=== PATIENT | female | born 1990 ===

== ENCOUNTER 2017-10-05 11:14 | Emergency (ER) | payer MEDICAID, OTHER ==
[2017-10-05 11:14] VITALS: BMI 35.7
[2017-10-05 11:20] VITALS: BP 128/83; PULSE 113; TEMP 98; O2SAT 100
[2017-10-05 11:39] VITALS: RESP 16
[2017-10-05] MEDS ORDERED: Sodium Chloride 0.9% 1,000 ML IV STA (12:08)
--- NOTE | 2017-10-05 12:11 | ED PDOC ---
HPI: General Adult Time Seen by Provider: 10/05/17 12:10 Chief Complaint (Nursing): Flu-like Symptoms Chief Complaint (Provider): ABDOMINAL PAIN/COUGH History Per: Patient (26 Y/O FEMALE HERE WITH COUGH/BODYACHES SINCE YESTERDAY. NOTES RIGHT LOWER ABDOMINAL PAIN INTERMITTENTLY. HAS HAD ULTRASOUND 1 MONTH PRIOR WNL. HAS HAD SMALL AMOUNT OF BLOOD NOTED WITH WIPING. DENIES ANY DYSURIA. ) Past Medical History Reviewed: Historical Data, Nursing Documentation, Vital Signs Vital Signs: Last Vital Signs Temp 98 F 10/05/17 11:37 Pulse 113 H 10/05/17 11:37 Resp 16 10/05/17 11:37 BP 128/83 10/05/17 11:37 Pulse Ox 100 10/05/17 12:11 - Medical History PMH: Anxiety Denies: Chronic Kidney Disease - Family History Family History: States: Unknown Family Hx, Diabetes, Hypertension - Immunization History Hx Tetanus Toxoid Vaccination: No Hx Influenza Vaccination: No Hx Pneumococcal Vaccination: No - Home Medications Home Medications: Ambulatory Orders Medication Instructions Recorded Acetaminophen [Acetaminophen Extra 2 tab PO Q6 PRN #24 tablet 10/05/17 Strength] Oseltamivir [Tamiflu] 75 mg PO BID #9 cap 10/05/17 - Allergies Allergies/Adverse Reactions: Allergies Allergy/AdvReac Type Severity Reaction Status Date / Time fluconazole [From Diflucan] Allergy ITCHING Verified 10/05/17 11:36 Review of Systems ROS Statement: Except As Marked, All Systems Reviewed And Found Negative Physical Exam - Reviewed Nursing Documentation Reviewed: Yes Vital Signs Reviewed: Yes - Physical Exam Appears: Positive for: Well, Non-toxic, No Acute Distress Head Exam: Positive for: ATRAUMATIC, NORMAL INSPECTION, NORMOCEPHALIC Skin: Positive for: Normal Color, Warm, DRY Eye Exam: Positive for: EOMI, Normal appearance, PERRL ENT: Positive for: Normal ENT Inspection Neck: Positive for: Normal, Painless ROM Cardiovascular/Chest: Positive for: Regular Rate, Rhythm Respiratory: Positive for: CNT, Normal Breath Sounds Gastrointestinal/Abdominal: Positive for: Normal Exam, Bowel Sounds, Soft Back: Positive for: Normal Inspection Extremity: Positive for: Normal ROM Neurologic/Psych: Positive for: Alert, Oriented - Laboratory Results Result Diagrams: 10/05/17 12:30 10/05/17 12:30 - ECG O2 Sat by Pulse Oximetry: 100 - Progress ED Course And Treament: US of pelvis IMPRESSION: A single viable intrauterine gestation is identified with average ultrasonic age 15 weeks 0 days which is concordant with menstrual dates as described above. cardiac activity 152 beats per minute. No acute suspicious findings as discussed above. A left lateral/ anterior fundal fibroid is identified 3.3 cm greatest dimension however. Clinical correlation and sonographic follow-up are advised. anatomical survey not provided they can be performed on elective basis as clinically warranted. Disposition - Clinical Impression Clinical Impression: Influenza-like symptoms, Fibroid, Abdominal pain during - Disposition Disposition: Routine/Home Disposition Time: 18:04 Condition: FAIR Prescriptions: Acetaminophen [Acetaminophen Extra Strength] 2 tab PO Q6 PRN #24 tablet PRN Reason: Pain, Moderate (4-7) Oseltamivir [Tamiflu] 75 mg PO BID #9 cap Instructions: Uterine Fibroids, and the Flu, Threatened Miscarriage Forms: [facility] ([place]), [facility] ED School/Work Excuse
[2017-10-05 12:46] LABS: SQUAMOUS EPITHIAL 38 /hpf (0-5); URINE BACTERIA MANY (<OCC); URINE BILIRUBIN NEGATIVE (NEGATIVE); URINE BLOOD NEGATIVE (NEGATIVE); URINE CLARITY CLOUDY (Clear); URINE COLOR AMBER (YELLOW); URINE GLUCOSE (UA) NEG (Normal); URINE LEUKOCYTE ESTERASE TRACE Leu/uL (Negative); URINE NITRATE NEGATIVE (NEGATIVE); URINE PROTEIN 30 mg/dL (NEGATIVE); URINE UROBILINOGEN 0.2-1.0 mg/dL (0.2-1.0)
[2017-10-05 13:03] LABS: BASO % 0.2 % (0.0-2.0); EOS # 0.1 K/uL (0.0-0.7); EOS % 1.2 % (0.0-4.0); HEMOGLOBIN 11.8 g/dL (12.0-16.0); LYMPH % 18.2 % (20.0-40.0); MEAN CELL VOLUME 81.9 fl (81.0-99.0); MEAN CORPUSCULAR HEMOGLOBIN 27.1 pg (27.0-31.0); MEAN CORPUSCULAR HGB CONC 33.1 g/dL (33.0-37.0); MEAN PLATELET VOLUME 8.7 fl (7.2-11.7); MONO # 0.5 K/uL (0.0-0.8); MONO % 4.1 % (0.0-10.0); NEUT # 8.4 K/uL (1.8-7.0); NEUT % 76.3 % (50.0-75.0); RBC 4.36 Mil/uL (3.80-5.20); RED CELL DISTRIBUTION WIDTH 15.5 % (11.5-14.5); WHITE BLOOD COUNT 11.1 K/uL (4.8-10.8)
[2017-10-05 13:07] LABS: BLOOD UREA NITROGEN 8 mg/dl (7-17); GFR AFRICAN-AMERICAN > 60; GFR NON-AFRICAN AMERICAN > 60
--- NOTE | 2017-10-05 16:21 | US ---
PROCEDURE: OB Pelvic Ultrasound HISTORY: right lower adnexal tendenress COMPARISON: None available. FINDINGS: UTERUS: A single viable intrauterine gestation is identified in variable lie with a posterior fundal placenta and an average ultrasonic age of 15 weeks 0 days. This is concordant with menstrual dates of 14 weeks 3 days based on prior LMP 06/26/2017. cardiac activity recorded 152 bpm. There is no placental abruption or previa with the internal cervical os appearing closed. The myometrium is remarkable for a small anterior fundal fibroid toward the left measuring 3.3 x 2.7 x 3.0 cm the remainder of the visualized myometrium appears unremarkable. biometry as follows: BPD 2.9 cm corresponds to 15 weeks 2 days. HC 10.7 cm corresponds to 15 weeks 1 day. AC 8.5 cm correspond to 14 weeks 6 days. FL 1.6 cm correspond to 14 weeks 6 days. HC/AC ratio 1.26 which falls within the normal range. Estimated date of delivery 03/29/2018. Amniotic fluid appearance is unremarkable grossly. Overall size of the uterus 13.5 x 11.7 x 7.5 cm. CERVIX: Long and closed. No cervical abnormality seen. RIGHT OVARY: Measures 3.9 x 3.3 x 2.0 cm. No mass. Normal flow. LEFT OVARY: Measures 3.4 x 3.2 x 1.9 cm. No mass. Normal flow. FREE FLUID: None. OTHER FINDINGS: None. IMPRESSION: A single viable intrauterine gestation is identified with average ultrasonic age 15 weeks 0 days which is concordant with menstrual dates as described above. cardiac activity 152 beats per minute. No acute suspicious findings as discussed above. A left lateral/ anterior fundal fibroid is identified 3.3 cm greatest dimension however. Clinical correlation and sonographic follow-up are advised. anatomical survey not provided they can be performed on elective basis as clinically warranted.
== END 2017-10-05 18:24 | disposition home or self-care (01) ==
LOC: H.ER 11:14
DX: R10.31 Right lower quadrant pain (principal); J11.1 Influenza due to unidentified influenza virus with other respiratory manifestations; O34.10 Maternal care for benign tumor of corpus uteri, unspecified trimester; F41.9 Anxiety disorder, unspecified
CPT/HCPCS: 76815; 76817; 80048; 81003; 84702; 85025; 86850; 86900; 87086; 87804; 96360; 96361; 99282; J7040

== ENCOUNTER 2017-11-28 14:28 | Emergency (ER) | payer OTHER ==
[2017-11-28 15:19] VITALS: BMI 36.2
[2017-11-28 17:20] LABS: SQUAMOUS EPITHIAL 2 /hpf (0-5); URINE AMORPHOUS SEDIMENT RARE /ul (<OCC); URINE BACTERIA RARE (<OCC); URINE BILIRUBIN NEGATIVE (NEGATIVE); URINE BLOOD NEGATIVE (NEGATIVE); URINE CLARITY SLIGHTY-CLOUDY (Clear); URINE COLOR YELLOW (YELLOW); URINE GLUCOSE (UA) NEG (Normal); URINE LEUKOCYTE ESTERASE NEG Leu/uL (Negative); URINE PROTEIN NEGATIVE (NEGATIVE); URINE UROBILINOGEN 0.2-1.0 mg/dL (0.2-1.0)
--- NOTE | 2017-11-28 17:20 | US ---
HISTORY: 22 weeks gestation. Assess cervical length COMPARISON: 10/05/2017 ultrasound. Cervical length on the prior study 4.37 cm TECHNIQUE: Standard protocol for this study/examination. FINDINGS: CERVIX: Cervical length 2.94 cm. Trace fluid in the lower cervical canal and vagina. FREE FLUID: No significant free fluid noted. OTHER FINDINGS: None. IMPRESSION: Cervical length 2.94 cm
--- NOTE | 2017-11-28 17:47 | OBHP ---
Datetime: 11/28/2017 15:15 IP Adm Impression: , intrauterine ; No Active Labor; Intact Membranes IP Chief Complaint Other: abd discomfort IP Admit Plan: Observation/Evaluation Admit Comment, IP Provider: IUP at 22w lower abd discomfort for weeks. She feel on and off. N o meds taken. +FM No VB PNC: [facility]; sono at [facility] [place] shortened cervix - chekcing q weekly PMH: PCOS PSH: laparoscopy Dr Yuliana Padron Allergy: Diflucan POBH: G1 PGYNH: No STD PSoH: denies smoking ETOH drugs A: IUP at 22w Hx shotert cervix PLAN: check US ; CLM Abdomen - PN: Normal Back - PN: Normal Lungs - PN: Normal Heart - PN: Normal General - PN: Normal FHR - Baseline A Provider: + Membranes, Provider: Intact Comments, ACOG Physical Exam: ROS: Geneeral: no fatigue; no weakness HEENT: no AGUILAR; no visual disturbance Resp: No SOB; no cough CV: no CP; no palpitations GI: no N/V/D : No F/U/D MS: No joint pain Pool Provider: Negative EGA AdmitDate IP: 22.1 Vital Signs Provider: Reviewed IP Chief Complaint: Other Dilatation, Provider: 0
--- NOTE | 2017-11-28 17:47 | OBDCSUM ---
Datetime: 11/28/2017 17:25 Discharged to, Provider: Home Follow up at, Provider: private [employer] Disch Instr Activity: Normal activity Disch Instr Diet: Regular Discharge Diet restrict Prov: please follow all instructions from your private [employer] Discharge Time: 11/28/2017 17:40 Follow up in weeks, Provider: This week Discharge Comment, Provider: CLM 2.8cm UA neg - Follow up with [facility] in 1-2w as scheduled Discharge Diagnosis Prov Other: abd pain
[2017-11-28 21:50] VITALS: BP 111/66; PULSE 107; RESP 18; TEMP 98.5; O2SAT 98
== END 2017-11-28 17:49 | disposition home or self-care (01) ==
LOC: H.EROB2 14:28
DX: O26.92 Pregnancy related conditions, unspecified, second trimester (principal); R10.2 Pelvic and perineal pain; Z3A.22 22 weeks gestation of pregnancy

== ENCOUNTER 2017-12-18 14:51 | Emergency (ER) | payer OTHER ==
[2017-12-18 17:34] VITALS: BMI 38.2
[2017-12-18] MEDS ORDERED: Betamethasone Soluspan 30 mg/5mL Inj Susp IM ONE (17:35)
[2017-12-18] MEDS ORDERED: Lactated Ringer's 1,000 ML IV ONE (17:35)
--- NOTE | 2017-12-18 17:47 | OBHP ---
Datetime: 12/18/2017 17:41 IP Adm Impression: , intrauterine IP Chief Complaint Other: rule out labor IP Admit Plan: Observation/Evaluation Admit Comment, IP Provider: Patient is a @ 25 wks with a history of short cervix sent over for evaluation. Patient has had short cervix since Level II u/s, has been on vaginal progesterone 200mcg PV QHS. Patient denies VB, leaking, no ctxns, no pressure, +FM. Patient had follow up U/S today which showed CL = 15mm -> 8mm with funneling. Pt has no complaints Spoke with attending lisset Escobar st was made to speak with MFM. Dr. Anderson requesting for patient to be started on MgSO4 for neuropr otection and prophylaxis, CBC draw, Betamethasone, IVF and to be transferred to a Level 3 NICU. FHR=1 50s mod cuauhtemoc, +accels, no contractions on monitor, vitals otherwise stable. Patient informed of plan o f care, all questions answered. Patient waiting for ambulance transfer Pelvic Type - PN: Adequate Extremities - PN: Normal Abdomen - PN: Normal Back - PN: Normal Breast - PN: Normal Lungs - PN: Normal Heart - PN: Normal Thyroid - PN: Normal Neurologic - PN: Normal HEENT - PN: Normal General - PN: Normal FHR - Baseline A Provider: 150 Vital Signs Provider: Reviewed; Within Normal Limits NICHD Variability Prov Fetus A: Moderate 6-25bpm NICHD Decel Fetus A IP Provider: None Genitourinary Exam: Normal DTRs - PN: Normal Datetime: 11/28/2017 15:15 EGA AdmitDate IP: 22.1
[2017-12-18] MEDS ORDERED: Magnesium Sulfate 2 gm/50 ml 2 GM/50 ML BAG IV ONE (18:00)
[2017-12-18] MEDS ORDERED: Lactated Ringer's 1,000 ML IV SCH (18:00)
[2017-12-18 18:02] LABS: BASO # 0.1 K/uL (0.0-0.2); BASO % 0.6 % (0.0-2.0); EOS # 0.2 K/uL (0.0-0.7); EOS % 1.4 % (0.0-4.0); HEMOGLOBIN 11.5 g/dL (12.0-16.0); LYMPH # 2.2 K/uL (1.0-4.3); LYMPH % 20.2 % (20.0-40.0); MEAN CELL VOLUME 85.7 fl (81.0-99.0); MEAN CORPUSCULAR HEMOGLOBIN 28.7 pg (27.0-31.0); MEAN CORPUSCULAR HGB CONC 33.5 g/dL (33.0-37.0); MEAN PLATELET VOLUME 9.2 fl (7.2-11.7); MONO # 0.5 K/uL (0.0-0.8); MONO % 4.7 % (0.0-10.0); NEUT % 73.1 % (50.0-75.0); RBC 3.99 Mil/uL (3.80-5.20); RED CELL DISTRIBUTION WIDTH 14.8 % (11.5-14.5); WHITE BLOOD COUNT 10.9 K/uL (4.8-10.8)
[2017-12-18 18:10] LABS: ALBUMIN 3.9 g/dL (3.5-5.0); ALT/SGPT 36 U/L (9-52); AST/SGOT 31 U/L (14-36); BLOOD UREA NITROGEN 4 mg/dl (7-17); CALCIUM 9.6 mg/dL (8.4-10.2); GFR AFRICAN-AMERICAN > 60; GFR NON-AFRICAN AMERICAN > 60
[2017-12-18] MEDS ORDERED: Magnesium Sulfate 4 gm/100 ml 4 GM/100 ML BAG IVPB ONE (18:19)
--- NOTE | 2017-12-18 20:13 | OBDCSUM ---
Datetime: 12/18/2017 20:12 Discharged to, Provider: Other Follow up at, Provider: [facility] Discharge Time: 12/18/2017 20:12 Discharge Diagnosis Prov Other: short cervix
[2017-12-19 01:40] VITALS: BP 107/60; PULSE 88; RESP 20; TEMP 98.6; O2SAT 99
== END 2017-12-18 19:30 | disposition short-term general hospital (02) ==
LOC: H.EROB2 14:51
DX: O26.872 Cervical shortening, second trimester (principal); O09.92 Supervision of high risk pregnancy, unspecified, second trimester; Z3A.25 25 weeks gestation of pregnancy; O09.292 Supervision of pregnancy with other poor reproductive or obstetric history, second trimester
CPT/HCPCS: 80053; 85025; 96365; 96372; 99284; J0702; J3475; J7120

== ENCOUNTER 2018-10-11 11:09 | Observation (INO) | payer MEDICAID, OTHER ==
[2018-10-11 11:28] VITALS: BMI 33.6
[2018-10-11] MEDS ORDERED: Sodium Chloride 0.9% 1,000 ML IV STA ×3 (12:14→17:12)
--- NOTE | 2018-10-11 12:16 | ED PDOC ---
HPI: General Adult Time Seen by Provider: 10/11/18 12:15 Chief Complaint (Nursing): Flu-like Symptoms Chief Complaint (Provider): cough/uri/fever History Per: Patient (27 y/o female 18 week here with cough/fever/bodyaches x 2-3 days associated with sore throat. Started on zpack by Dr. alaniz. Patient requesting tamiflu.) Past Medical History Reviewed: Historical Data, Nursing Documentation, Vital Signs Vital Signs: Last Vital Signs Temp 100 F H 10/11/18 11:29 Pulse 127 H 10/11/18 11:29 Resp 20 10/11/18 11:29 BP 112/76 10/11/18 11:29 Pulse Ox 99 10/11/18 11:29 - Medical History PMH: Anxiety Denies: Chronic Kidney Disease - Family History Family History: States: Unknown Family Hx, Diabetes, Hypertension - Immunization History Hx Tetanus Toxoid Vaccination: No Hx Influenza Vaccination: No Hx Pneumococcal Vaccination: No - Home Medications Home Medications: Ambulatory Orders Medication Instructions Recorded Oseltamivir Phosphate [Tamiflu] 75 mg PO BID #9 capsule 10/11/18 - Allergies Allergies/Adverse Reactions: Allergies Allergy/AdvReac Type Severity Reaction Status Date / Time fluconazole [From Diflucan] Allergy ITCHING Verified 10/05/17 11:36 Review of Systems ROS Statement: Except As Marked, All Systems Reviewed And Found Negative Constitutional: Positive for: Fever Respiratory: Positive for: Cough Physical Exam - Reviewed Nursing Documentation Reviewed: Yes Vital Signs Reviewed: Yes - Physical Exam Appears: Positive for: Well, Non-toxic, No Acute Distress Head Exam: Positive for: ATRAUMATIC, NORMAL INSPECTION, NORMOCEPHALIC Skin: Positive for: Normal Color, Warm, DRY Eye Exam: Positive for: EOMI, Normal appearance, PERRL ENT: Positive for: Normal ENT Inspection Neck: Positive for: Normal, Painless ROM Cardiovascular/Chest: Positive for: Regular Rate, Rhythm Respiratory: Positive for: CNT, Normal Breath Sounds Gastrointestinal/Abdominal: Positive for: Normal Exam, Soft Back: Positive for: Normal Inspection Extremity: Positive for: Normal ROM Neurological/Psych: Positive for: Awake, Alert, Normal Tone - Laboratory Results Result Diagrams: 10/11/18 12:00 10/11/18 12:00 - ECG O2 Sat by Pulse Oximetry: 99 - Progress ED Course And Treament: FLU A POSITIVE TAMIFLU 75 MG X 1 DOSE NS 1 LITER WIDE OPEN PATIENT NOTED PERSISTENTLY TACHYCARDIC DESPITE 1 LITER OF NASAL SALINE FLUIDS. TYLENOL 975MG X 1 DOSE NS 1 LITER ADDITIONAL GIVEN HEART RATE NOTED 120. EKG DONE 113 SINUS TACHYCARDIA NO ECTOPY NO ACUTE CHANGES. CALLED TO BEDSIDE DUE TO ACUTE SHORTNESS OF BREATH. PATIENT NOTED WHEEZING ON EXAM. DUONEB X 2. SOLUMEDROL 40 MG IV X 1 DOSE WITH IMPROVEMENT/MODERATE RESOLUTION OF SYMPTOMS. THIRD LITER FLUIDS GIVEN. PATIENT NOTED PERSISTENTLY AROUND 117-120 ON MONITOR. D/W DR. ALANIZ. WE WILL ADMIT FOR TELE OBS AND HAD CARDIOLOGY EVALUATE TOMORROW. PATIENT RE-EXAMINED AT 19:01PM. NOTES MILD WORSENING OF SYMPTOMS. SOLUMEDROL 80MG IV X 1 DOSE. PRO BNP/TROP ADDED. DUONEB X 1 DOSE NOW Disposition - Clinical Impression Clinical Impression: Influenza A - Patient ED Disposition Is Patient to be Admitted: No - Disposition Disposition: Routine/Home Disposition Time: 18:37 Condition: FAIR - Pt Status Changed To: Hospital Disposition Of: Observation
[2018-10-11 12:40] LABS: BASO % 0.2 % (0.0-2.0); EOS % 0.2 % (0.0-4.0); HEMOGLOBIN 11.4 g/dL (12.0-16.0); LYMPH # 0.8 K/uL (1.0-4.3); LYMPH % 13.5 % (20.0-40.0); MEAN CORPUSCULAR HEMOGLOBIN 29.5 pg (27.0-31.0); MEAN CORPUSCULAR HGB CONC 34.2 g/dL (33.0-37.0); MEAN PLATELET VOLUME 8.7 fl (7.2-11.7); MONO # 0.4 K/uL (0.0-0.8); MONO % 6.9 % (0.0-10.0); NEUT # 4.9 K/uL (1.8-7.0); NEUT % 79.2 % (50.0-75.0); RBC 3.86 Mil/uL (3.80-5.20); RED CELL DISTRIBUTION WIDTH 14.3 % (11.5-14.5); WHITE BLOOD COUNT 6.2 K/uL (4.8-10.8)
[2018-10-11 13:02] LABS: ALB/GLOB RATIO 1.1 (1.0-2.1); ALT/SGPT 54 U/L (9-52); AST/SGOT 46 U/L (14-36); BLOOD UREA NITROGEN 3 mg/dl (7-17); CALCIUM 9.6 mg/dL (8.4-10.2); GFR NON-AFRICAN AMERICAN > 60
[2018-10-11] MEDS ORDERED: Albuterol-Ipratrop 3 mg / 0.5 (3 ml) UD INH STA ×3 (15:35→19:28)
[2018-10-11] MEDS ORDERED: Albuterol-Ipratrop 3 mg / 0.5 (3 ml) UD ONE ×2 (15:39→19:53)
[2018-10-11] MEDS ORDERED: MethylPREDNISolone 40 mg Vial IVP ONE (17:15)
[2018-10-11] MEDS ORDERED: MethylPREDNISolone 40 mg Vial ONE ×2 (17:19→19:53)
--- NOTE | 2018-10-11 23:12 | CP.PCM.HP ---
History of Present Illness - History of Present Illness History of Present Illness: 27 y/o female ( delivery at 32 wks) with EDC of 03/17/19, and 17+ wks gestation, who underwent cervical cerclage placement at [facility], on 09/19/18 who was seen in office yesterday with sx of URI and sorethoat and tx'd with po cough meds and a Z pack and who called this am c/o worsening sx and not being able to breath Pt was sent to ER and found with + influenza a, and maternal tachycardia which persisted and now admitted for cardiac monitoring Denies chest pain or neck, jaw or arm pains Denies vaginal bleeding or spotting No abdominal pains. Present on Admission - Present on Admission Any Indicators Present on Admission: No Review of Systems - Constitutional Constitutional: Fever, Malaise - EENT Nose/Mouth/Throat: Nasal Congestion, Sore Throat - Cardiovascular Cardiovascular: Dyspnea, Rapid Heart Rate - Reproductive: Female Reproductive:Female: As Per HPI - Menstruation Menstruation: As Per HPI Additional comments: 17+ wks preg Past Patient History - Infectious Disease Hx of Infectious Diseases: None - Past Medical History & Family History Past Medical History?: Yes - Past Social History Smoking Status: Former Smoker Alcohol: None Drugs: Denies - CARDIAC Hx Cardiac Disorders: Yes (PALPITATIONS) - PULMONARY Hx Respiratory Disorders: No - NEUROLOGICAL Hx Neurological Disorder: No - HEENT Hx HEENT Problems: No - RENAL Hx Chronic Kidney Disease: No - ENDOCRINE/METABOLIC Hx Endocrine Disorders: No (SEE COMMENT) Other/Comment: PCOS - HEMATOLOGICAL/ONCOLOGICAL Hx Blood Disorders: No - INTEGUMENTARY Hx Dermatological Problems: No - GASTROINTESTINAL Hx Gastrointestinal Disorders: No - GENITOURINARY/GYNECOLOGICAL Hx Genitourinary Disorders: Yes Other/Comment: polycystic ovarian syndrome. endometriosis LMP:: 06/04/18 : 2 Para: 1 ( delivery at 32 wks) - PSYCHIATRIC Hx Anxiety: Yes - SURGICAL HISTORY Hx Surgeries: Yes Other/Comment: LAPAROSCOPY OVARIAN CYSTECTOMY/Cervical cerclage - ANESTHESIA Hx Anesthesia: Yes Hx Anesthesia Reactions: No Hx Malignant Hyperthermia: No Meds Allergies/Adverse Reactions: Allergies Allergy/AdvReac Type Severity Reaction Status Date / Time fluconazole [From Diflucan] Allergy ITCHING Verified 10/05/17 11:36 Physical Exam - Head Exam Head Exam: ATRAUMATIC - Eye Exam Eye Exam: Normal appearance - ENT Exam ENT Exam: Mucous Membranes Moist - Neck Exam Neck exam: Positive for: Full Rom - Respiratory Exam Respiratory Exam: Wheezes - Cardiovascular Exam Cardiovascular Exam: Tachycardia - GI/Abdominal Exam GI & Abdominal Exam: Normal Bowel Sounds, Soft Additional comments: gravid abdomen fundus at 2 FB below umb. and not tender FCA 150's by doppler - Exam External exam: NORMAL EXTERNAL EXAM - Extremities Exam Additional comments: no calf tenderness - Neurological Exam Neurological exam: Alert, Oriented x3 - Psychiatric Exam Psychiatric exam: Normal Affect Results - Vital Signs Recent Vital Signs: Last Vital Signs Temp 98.6 F 10/11/18 21:53 Pulse 115 H 10/11/18 21:53 Resp 18 10/11/18 21:53 BP 95/67 L 10/11/18 21:53 Pulse Ox 99 10/11/18 21:53 - Labs Result Diagrams: 10/11/18 12:00 10/11/18 12:00 Labs: Laboratory Results - last 24 hr 10/11/18 10/11/18 10/11/18 12:00 12:00 12:00 WBC 6.2 RBC 3.86 Hgb 11.4 L Hct 33.2 L MCV 86.0 MCH 29.5 MCHC 34.2 RDW 14.3 Plt Count 187 MPV 8.7 Neut % (Auto) 79.2 H Lymph % (Auto) 13.5 L [place] % (Auto) 6.9 Eos % (Auto) 0.2 Baso % (Auto) 0.2 Neut # (Auto) 4.9 Lymph # (Auto) 0.8 L [place] # (Auto) 0.4 Eos # (Auto) 0.0 Baso # (Auto) 0.0 Sodium 138 Potassium 3.7 Chloride 105 Carbon Dioxide 21 L Anion Gap 16 BUN 3 L Creatinine 0.4 L Est GFR ( Amer) > 60 Est GFR (Non-Af Amer) > 60 Random Glucose 120 H Calcium 9.6 Total Bilirubin 0.2 AST 46 H D ALT 54 H D Alkaline Phosphatase 71 Troponin I NT-Pro-B Natriuret Pep Total Protein 7.6 Albumin 4.0 Globulin 3.6 Albumin/Globulin Ratio 1.1 Influenza Typ A,B (EIA) Pos for influenza a H Grp A Beta Strep Ag 10/11/18 10/11/18 12:00 19:37 WBC RBC Hgb Hct MCV MCH MCHC RDW Plt Count MPV Neut % (Auto) Lymph % (Auto) [place] % (Auto) Eos % (Auto) Baso % (Auto) Neut # (Auto) Lymph # (Auto) Kerr # (Auto) Eos # (Auto) Baso # (Auto) Sodium Potassium Chloride Carbon Dioxide Anion Gap BUN Creatinine Est GFR ( Amer) Est GFR (Non-Af Amer) Random Glucose Calcium Total Bilirubin AST ALT Alkaline Phosphatase Troponin I < 0.0120 NT-Pro-B Natriuret Pep 31.0 Total Protein Albumin Globulin Albumin/Globulin Ratio Influenza Typ A,B (EIA) Grp A Beta Strep Ag Negative Assessment & Plan - Assessment and Plan (Free Text) Assessment: at 17+ wks ; maternal tachycardia; Upper resp tract infection; Influenza Plan: cardiology consult and cardiac monitoring IV hydration and steroids/and tamiflu - Date & Time Date: 10/11/18 Time: 23:26
[2018-10-12] MEDS ORDERED: Albuterol 0.083% Inhal Sol (2.5 mg/3 mL) UD INH PRN (10:29)
--- NOTE | 2018-10-12 10:46 | CP.PCM.CON ---
History of Present Illness - History of Present Illness History of Present Illness: Asked to see this 27 year old female who is 17 weeks began to develop URI symptoms 48-72 hours ago. She was placed on azithromycin, but did not improve. Yesterday she began to have shortness of breath and presented to the emergency room with SOB and tachycardia. She was found to be Influenza A positive and was begun on oseltamivir. She relates feverish feeling at home with occasional cough, but no sputum production. She did have sore throat and body aches. She was given parenteral fluids and aerosol therapy with gradual improvement. She has no prior history of respiratory disease, and prior did not have any pulmonary related problems. She does have one brother who has been diagnosed with Bronchial Asthma, but no other family history of allergies or respiratory illness. She had been well prior to the presenting illness. Review of Systems - Constitutional Constitutional: Fever, Malaise - EENT Nose/Mouth/Throat: Nasal Congestion, Sore Throat - Cardiovascular Cardiovascular: Palpitations - Respiratory Respiratory: Cough, Dyspnea - Gastrointestinal Gastrointestinal: Diarrhea (once the day before presentation), Vomiting (once the day prior to presentation) - Reproductive: Female Reproductive:Female: Other (IUP 17-18 weeks followed by OB) - Psychiatric Psychiatric: Anxiety Past Patient History - Infectious Disease Hx of Infectious Diseases: None - Past Medical History & Family History Past Medical History?: Yes Pertinent Family History: diabetes - Past Social History Smoking Status: Former Smoker Chewing Tobacco Use: No Cigar Use: No Alcohol: None Drugs: Denies - CARDIAC Hx Cardiac Disorders: Yes (PALPITATIONS) - PULMONARY Hx Respiratory Disorders: No - NEUROLOGICAL Hx Neurological Disorder: No - HEENT Hx HEENT Problems: No - RENAL Hx Chronic Kidney Disease: No - ENDOCRINE/METABOLIC Hx Endocrine Disorders: No - HEMATOLOGICAL/ONCOLOGICAL Hx Blood Disorders: No - INTEGUMENTARY Hx Dermatological Problems: No - MUSCULOSKELETAL/RHEUMATOLOGICAL Hx Musculoskeletal Disorders: No Hx Falls: No - GASTROINTESTINAL Hx Gastrointestinal Disorders: No - GENITOURINARY/GYNECOLOGICAL Hx Genitourinary Disorders: Yes Other/Comment: polycystic ovarian syndrome. endometriosis LMP:: 06/04/18 : 2 Para: 1 ( delivery at 32 wks) - PSYCHIATRIC Hx Anxiety: Yes - SURGICAL HISTORY Hx Surgeries: Yes Other/Comment: LAPAROSCOPIC OVARIAN CYSTECTOMY/Cervical cerclage - ANESTHESIA Hx Anesthesia: Yes Hx Anesthesia Reactions: No Hx Malignant Hyperthermia: No Meds Allergies/Adverse Reactions: Allergies Allergy/AdvReac Type Severity Reaction Status Date / Time fluconazole [From Diflucan] Allergy ITCHING Verified 10/05/17 11:36 - Medications Medications: Current Medications Albuterol Sulfate (Albuterol 0.083% Inhal Jo-Ann (2.5 Mg/3 Ml) Ud) 2.5 mg INH RQ4 PRN PRN Reason: Shortness of Breath Oseltamivir Phosphate (Tamiflu Cap) 75 mg PO BID ELKIN; Protocol Stop: 10/15/18 17:01 Last Admin: 10/12/18 08:49 Dose: 75 mg Physical Exam - Additional Findings Additional findings: Well nourished, well developed, appears comfortable. SpO2 98% on room air, breathing comfortably. No cough, accessory muscle use or IC retractions. No cyanosis, no dependant edema, no calf tenderness. Pharynx is injected, moist, w/o exudate. Nares are patent bilaterally w/o bleeding or exudate. Neck is supple and trachea is midline, no JVD. No dullness on cheat percussion, equal expansion. Breath sounds are well heard bilaterally w/o audible wheezes or rales. No bronchial breath sounds or egophony. Heart sounds are well heard, regular rhythm 80 BPM Results - Vital Signs Recent Vital Signs: Last Vital Signs Temp 98.3 F 10/12/18 07:59 Pulse 88 10/12/18 07:59 Resp 18 10/12/18 07:59 BP 98/65 L 10/12/18 07:59 Pulse Ox 99 10/12/18 07:59 - Labs Result Diagrams: 10/11/18 12:00 10/11/18 12:00 Labs: Laboratory Results - last 24 hr 10/11/18 10/11/18 10/11/18 12:00 12:00 12:00 WBC 6.2 RBC 3.86 Hgb 11.4 L Hct 33.2 L MCV 86.0 MCH 29.5 MCHC 34.2 RDW 14.3 Plt Count 187 MPV 8.7 Neut % (Auto) 79.2 H Lymph % (Auto) 13.5 L [place] % (Auto) 6.9 Eos % (Auto) 0.2 Baso % (Auto) 0.2 Neut # (Auto) 4.9 Lymph # (Auto) 0.8 L [place] # (Auto) 0.4 Eos # (Auto) 0.0 Baso # (Auto) 0.0 Sodium 138 Potassium 3.7 Chloride 105 Carbon Dioxide 21 L Anion Gap 16 BUN 3 L Creatinine 0.4 L Est GFR ( Amer) > 60 Est GFR (Non-Af Amer) > 60 Random Glucose 120 H Calcium 9.6 Total Bilirubin 0.2 AST 46 H D ALT 54 H D Alkaline Phosphatase 71 Troponin I NT-Pro-B Natriuret Pep Total Protein 7.6 Albumin 4.0 Globulin 3.6 Albumin/Globulin Ratio 1.1 Influenza Typ A,B (EIA) Pos for influenza a H Grp A Beta Strep Ag 10/11/18 10/11/18 12:00 19:37 WBC RBC Hgb Hct MCV MCH MCHC RDW Plt Count MPV Neut % (Auto) Lymph % (Auto) [place] % (Auto) Eos % (Auto) Baso % (Auto) Neut # (Auto) Lymph # (Auto) [place] # (Auto) Eos # (Auto) Baso # (Auto) Sodium Potassium Chloride Carbon Dioxide Anion Gap BUN Creatinine Est GFR ( Amer) Est GFR (Non-Af Amer) Random Glucose Calcium Total Bilirubin AST ALT Alkaline Phosphatase Troponin I < 0.0120 NT-Pro-B Natriuret Pep 31.0 Total Protein Albumin Globulin Albumin/Globulin Ratio Influenza Typ A,B (EIA) Grp A Beta Strep Ag Negative Assessment & Plan (1) with 17 completed weeks gestation Status: Acute Priority: High (2) Influenza A Status: Acute Priority: High - Assessment and Plan (Free Text) Plan: At the present time I would simply continue Tamiflu 75MG PO BID for 5 days treatment. Aerosol therapy with albuterol Q4H PRN for shortness of breath/wheezing. Maintain SpO2 >=95%. No further steroids indicated if she remains stable. Chest x-ray if cough develops or SOB worsens. Generous, but cautious fluid intake. No antibiotics unless signs of bacterial infection develops. - Date & Time Date: 10/12/18 Time: 11:03
[2018-10-12 12:07] VITALS: O2SAT 95
--- NOTE | 2018-10-12 13:26 | CP.PCM.CON ---
History of Present Illness - History of Present Illness History of Present Illness: 27 yo female admitted with MONIQUE Mary Kate Esposito , consulted for sinus tachycardia, pt hemodynamically stable , resting comfortably Past Patient History - Infectious Disease Hx of Infectious Diseases: None - Past Medical History & Family History Past Medical History?: Yes - Past Social History Smoking Status: Former Smoker Chewing Tobacco Use: No Cigar Use: No Alcohol: None Drugs: Denies - CARDIAC Hx Cardiac Disorders: Yes (PALPITATIONS) - PULMONARY Hx Respiratory Disorders: No - NEUROLOGICAL Hx Neurological Disorder: No - HEENT Hx HEENT Problems: No - RENAL Hx Chronic Kidney Disease: No - ENDOCRINE/METABOLIC Hx Endocrine Disorders: No - HEMATOLOGICAL/ONCOLOGICAL Hx Blood Disorders: No - INTEGUMENTARY Hx Dermatological Problems: No - MUSCULOSKELETAL/RHEUMATOLOGICAL Hx Musculoskeletal Disorders: No Hx Falls: No - GASTROINTESTINAL Hx Gastrointestinal Disorders: No - GENITOURINARY/GYNECOLOGICAL Hx Genitourinary Disorders: Yes Other/Comment: polycystic ovarian syndrome. endometriosis LMP:: 06/04/18 : 2 Para: 1 ( delivery at 32 wks) - PSYCHIATRIC Hx Anxiety: Yes - SURGICAL HISTORY Hx Surgeries: Yes Other/Comment: LAPAROSCOPIC OVARIAN CYSTECTOMY/Cervical cerclage - ANESTHESIA Hx Anesthesia: Yes Hx Anesthesia Reactions: No Hx Malignant Hyperthermia: No Meds Allergies/Adverse Reactions: Allergies Allergy/AdvReac Type Severity Reaction Status Date / Time fluconazole [From Diflucan] Allergy ITCHING Verified 10/05/17 11:36 - Medications Medications: Current Medications Albuterol Sulfate (Albuterol 0.083% Inhal Jo-Ann (2.5 Mg/3 Ml) Ud) 2.5 mg INH RQ4 PRN PRN Reason: Shortness of Breath Last Admin: 10/12/18 11:02 Dose: 2.5 mg Oseltamivir Phosphate (Tamiflu Cap) 75 mg PO BID [facility]; Protocol Stop: 10/15/18 17:01 Last Admin: 10/12/18 08:49 Dose: 75 mg Physical Exam - Neck Exam Neck exam: Positive for: Normal Inspection - Respiratory Exam Respiratory Exam: Clear to Auscultation Bilateral - Cardiovascular Exam Cardiovascular Exam: REGULAR RHYTHM - GI/Abdominal Exam GI & Abdominal Exam: Normal Bowel Sounds - Extremities Exam Extremities exam: Positive for: normal inspection Results - Vital Signs Recent Vital Signs: Last Vital Signs Temp 97.9 F 10/12/18 12:07 Pulse 99 H 10/12/18 12:07 Resp 18 10/12/18 12:07 BP 106/72 10/12/18 12:07 Pulse Ox 95 10/12/18 12:07 - Labs Result Diagrams: 10/11/18 12:00 10/11/18 12:00 Labs: Laboratory Results - last 24 hr 10/11/18 19:37 Troponin I < 0.0120 NT-Pro-B Natriuret Pep 31.0 Assessment & Plan - Assessment and Plan (Free Text) Assessment: Physiologic sinus tachycardia in setting of influenza , fever, dehydration, bronchodilators EKG unremarkable Plan: Continue supportive treatment Stable from Cardiology standpoint Can go off Telemetry
[2018-10-12 15:48] VITALS: BP 102/69; PULSE 87; RESP 17; TEMP 98.1
--- NOTE | 2018-10-12 16:32 | CP.PCM.PN ---
Subjective - Date & Time of Evaluation Date of Evaluation: 10/12/18 Time of Evaluation: 16:30 - Subjective Subjective: feels much better denies bleeding or discharge Breathing better and denies SOB, chest or leg pains Objective - Vital Signs/Intake and Output Vital Signs (last 24 hours): Temp Pulse Resp BP Pulse Ox 98.1 F 87 17 102/69 95 10/12/18 15:48 10/12/18 15:48 10/12/18 15:48 10/12/18 15:48 10/12/18 15:48 - Medications Medications: Current Medications Albuterol Sulfate (Albuterol 0.083% Inhal Jo-Ann (2.5 Mg/3 Ml) Ud) 2.5 mg INH RQ4 PRN PRN Reason: Shortness of Breath Last Admin: 10/12/18 11:02 Dose: 2.5 mg Oseltamivir Phosphate (Tamiflu Cap) 75 mg PO BID [facility]; Protocol Stop: 10/15/18 17:01 Last Admin: 10/12/18 16:25 Dose: 75 mg - Labs Labs: 10/11/18 12:00 10/11/18 12:00 - Constitutional Appears: No Acute Distress - Head Exam Head Exam: ATRAUMATIC - ENT Exam ENT Exam: Mucous Membranes Moist - Neck Exam Neck Exam: Full ROM, Normal Inspection - Respiratory Exam Respiratory Exam: NORMAL BREATHING PATTERN - GI/Abdominal Exam Additional comments: soft ND NT Gravid fundus below umb NT, FCA 150b/m - Extremities Exam Extremities Exam: Full ROM Additional comments: no calf tenderness - Neurological Exam Neurological Exam: Alert, Awake, Oriented x3 Assessment and Plan - Assessment and Plan (Free Text) Assessment: improved breathing and maternal tachycardia resolved 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
--- NOTE | 2018-10-12 16:39 | US ---
Date of service: 10/12/2018 PROCEDURE: OB Pelvic Ultrasound HISTORY: preg at 17 wks with cer[address]. COMPARISON: ultrasound 10/05/2017. FINDINGS: UTERUS: A single viable intrauterine gestation is identified in breech lie with a posterior fundal placenta and no evidence of abruption or previa at this time. cardiac activity is recorded at 143 beats per minute with unremarkable appearing primary fluid volume appreciated grossly. No suspicious myometrial lesion appreciable grossly. The following biometry was obtained: Biparietal diameter 3.85 cm corresponds to 17 weeks 5 days. Head circumference 14.52 cm corresponds to 17 weeks 5 days. Abdominal circumference 11.7 cm corresponds to 17 weeks 3 days. Femur length 1.72 cm corresponds to 15 weeks 1 day. HC/AC ratio 1.24 which falls within the normal range. Average ultrasonic age is 17 weeks 0 days which is relatively concordant with prior exam suggesting 15 week 0 day gestation. anatomical survey not submitted. CERVIX: Measures 3.1 cm. Long and closed. No focal cervical abnormality seen. RIGHT OVARY: Measures 4.3 x 1.9 x 2.1 cm. No mass lesion. Normal flow. LEFT OVARY: Measures 3.2 x 1.7 x 2.0 cm. No solid mass. Normal flow. FREE FLUID: None. OTHER FINDINGS: None. IMPRESSION: A single viable intrauterine gestation is identified in breech lie with average ultrasonic age of 17 weeks 0 days today compared to 15 weeks 0 days on 10/05/2017, which concordant taking standard deviation to account. Clinically correlate nevertheless. Femur length cranial and abdominal biometry. Follow-up recommended. Closed internal os at cervix with cervical length of 3.1 cm.
--- NOTE | 2018-10-12 16:40 | CP.PCM.DIS ---
Provider - Provider Date of Admission: 10/11/18 18:37 Attending physician: Donte Winters MD Consults: 10/11/18 19:28 Cardiology Consult Stat Comment: TACHYCARDIA IN FEMALE Consulting Provider: Kendrick Tello Consulting Physician: Kendrick Tello Reason for Consult: TACHYCARDIA IN FEMALE 10/12/18 09:08 Pulmonology Consult Routine Comment: Consulting Provider: José Antonio Morris Consulting Physician: José Antonio Morris Reason for Consult: Asthma, wheezing Time Spent in preparation of Discharge (in minutes): 5 Diagnosis - Discharge Diagnosis (1) Tachycardia Status: Acute Hospital Course - Lab Results Lab Results: Micro Results 10/11/18 12:00 Throat Group A Strep Throat Culture - Final NO BETA STREP GROUP A ISOLATED. Most Recent Lab Values WBC 6.2 K/uL (4.8-10.8) 10/11/18 12:00 RBC 3.86 Mil/uL (3.80-5.20) 10/11/18 12:00 Hgb 11.4 g/dL (12.0-16.0) L 10/11/18 12:00 Hct 33.2 % (34.0-47.0) L 10/11/18 12:00 MCV 86.0 fl (81.0-99.0) 10/11/18 12:00 MCH 29.5 pg (27.0-31.0) 10/11/18 12:00 MCHC 34.2 g/dL (33.0-37.0) 10/11/18 12:00 RDW 14.3 % (11.5-14.5) 10/11/18 12:00 Plt Count 187 K/uL (130-400) 10/11/18 12:00 MPV 8.7 fl (7.2-11.7) 10/11/18 12:00 Neut % (Auto) 79.2 % (50.0-75.0) H 10/11/18 12:00 Lymph % (Auto) 13.5 % (20.0-40.0) L 10/11/18 12:00 [place] % (Auto) 6.9 % (0.0-10.0) 10/11/18 12:00 Eos % (Auto) 0.2 % (0.0-4.0) 10/11/18 12:00 Baso % (Auto) 0.2 % (0.0-2.0) 10/11/18 12:00 Neut # (Auto) 4.9 K/uL (1.8-7.0) 10/11/18 12:00 Lymph # (Auto) 0.8 K/uL (1.0-4.3) L 10/11/18 12:00 [place] # (Auto) 0.4 K/uL (0.0-0.8) 10/11/18 12:00 Eos # (Auto) 0.0 K/uL (0.0-0.7) 10/11/18 12:00 Baso # (Auto) 0.0 K/uL (0.0-0.2) 10/11/18 12:00 Sodium 138 mmol/l (132-148) 10/11/18 12:00 Potassium 3.7 MMOL/L (3.6-5.0) 10/11/18 12:00 Chloride 105 mmol/L (98-107) 10/11/18 12:00 Carbon Dioxide 21 mmol/L (22-30) L 10/11/18 12:00 Anion Gap 16 (10-20) 10/11/18 12:00 BUN 3 mg/dl (7-17) L 10/11/18 12:00 Creatinine 0.4 mg/dl (0.7-1.2) L 10/11/18 12:00 Est GFR ( Amer) > 60 10/11/18 12:00 Est GFR (Non-Af Amer) > 60 10/11/18 12:00 Random Glucose 120 mg/dL (65-105) H 10/11/18 12:00 Calcium 9.6 mg/dL (8.4-10.2) 10/11/18 12:00 Total Bilirubin 0.2 mg/dl (0.2-1.3) 10/11/18 12:00 AST 46 U/L (14-36) H D 10/11/18 12:00 ALT 54 U/L (9-52) H D 10/11/18 12:00 Alkaline Phosphatase 71 U/L (38-126) 10/11/18 12:00 Troponin I < 0.0120 ng/mL (0.00-0.120) 10/11/18 19:37 NT-Pro-B Natriuret Pep 31.0 pg/ml (0-450) 10/11/18 19:37 Total Protein 7.6 G/DL (6.3-8.2) 10/11/18 12:00 Albumin 4.0 g/dL (3.5-5.0) 10/11/18 12:00 Globulin 3.6 gm/dL (2.2-3.9) 10/11/18 12:00 Albumin/Globulin Ratio 1.1 (1.0-2.1) 10/11/18 12:00 Influenza Typ A,B (EIA) Pos for influenza a (NEGATIVE) H 10/11/18 12:00 Grp A Beta Strep Ag Negative (NEGATIVE) 10/11/18 12:00 - Hospital Course Hospital Course: treated with antiviral meds steroids and had EKG done and normal Cardiology and pulmunology consults given and pt cleared by both specialist Pt condition improved and D/C home on Tamiflu and Ventolyn pump Discharge Exam - Head Exam Head Exam: ATRAUMATIC Discharge Plan - Follow Up Plan Condition: FAIR Instructions: Flu, Adult (DC), Cardioversion (DC) Additional Instructions: pelvic and bed rest Increased po hydration and Call immiatly if any worsening or C/F
--- NOTE | 2018-10-12 18:55 | CARD ---
APPROVED REPORT Date of service: 10/11/2018 EKG Measurement Heart [id number] <Conclusion> Sinus tachycardia Otherwise normal ECG
== END 2018-10-12 17:15 | disposition home or self-care (01) ==
LOC: H.ER 11:09 → H.ERHOLD 18:37 → H.TEL 21:17
PROVIDERS: ADMIT Specialist; ATTEND Specialist
DX: O26.899 Other specified pregnancy related conditions, unspecified trimester (principal); R00.0 Tachycardia, unspecified; R00.2 Palpitations; O99.512 Diseases of the respiratory system complicating pregnancy, second trimester; J10.1 Influenza due to other identified influenza virus with other respiratory manifestations; J45.909 Unspecified asthma, uncomplicated; O99.282 Endocrine, nutritional and metabolic diseases complicating pregnancy, second trimester; O99.342 Other mental disorders complicating pregnancy, second trimester; F41.9 Anxiety disorder, unspecified; Z83.3 Family history of diabetes mellitus; Z87.891 Personal history of nicotine dependence; Z3A.17 17 weeks gestation of pregnancy; E28.2 Polycystic ovarian syndrome
CPT/HCPCS: 76815; 80053; 83880; 84484; 85025; 87070; 87430; 87804; 93005; 94640; 96374; 96376; 99285; G0378; J2920; J2930; J7030